=== PATIENT | female | born 1945 | race Caucasian/White ===

== ENCOUNTER 2020-01-26 05:20 | Emergency (ER) | payer MEDICARE, BC ==
[2020-01-26] MEDS ORDERED: Sodium Chloride 0.9% 10 ML Syringe FLUSH PRN (05:52)
[2020-01-26] MEDS ORDERED: Sodium Chloride 0.9% 1,000 ML IV ONE (05:58)
[2020-01-26] MEDS ORDERED: Acetaminophen 325 MG Tab PO PRN (06:00)
[2020-01-26] MEDS ORDERED: Ondansetron 4 MG/2 ML SDV IVPUSH ONE (06:16)
[2020-01-26 06:21] LABS: CHLORIDE,CL 100 mmol/L (98-107); SODIUM,NA 134 mmol/L (136-145)
--- NOTE | 2020-01-26 06:30 | EDM.PDOC ---
ED HPI GENERAL MEDICAL PROBLEM - General Chief Complaint: General Stated Complaint: Fever, cough aches and pains Time Seen by Provider: 01/26/20 05:40 Source of Information: Reports: Patient History Limitations: Reports: No Limitations - History of Present Illness INITIAL COMMENTS - FREE TEXT/NARRATIVE: Patient comes to ER by EMS due to Covid symptoms. + test Jan 10/had symptoms start a few days before. Generalized body aches/cough/loose stools/nausea/light headed/nasal congestion. Has chronic back pain which has worsened with the Covid. No vomiting. No SOB at this time. Unable to sleep. Weaker. Has had fevers/no specific measurement/has been taking Tylenol. Back Pain Score (Numeric/FACES): 5 - Related Data Allergies Allergy/AdvReac Type Severity Reaction Status Date / Time Sulfa (Sulfonamide Allergy Rash Verified 01/26/20 05:23 Antibiotics) Home Meds: Home Meds Acebutolol HCl [Acebutolol] 200 mg PO DAILY 01/26/20 [History] Acetaminophen [Tylenol Extra Strength] 1,000 mg PO Q4HR PRN 01/26/20 [History] Calcium Citrate/Vitamin D3 [Citracal-Vit D 250 MG-200] 1 tab PO DAILY 01/26/20 [History] Cyanocobalamin/Folic AC/Vit B6 [F[place]] 1 each PO DAILY 01/26/20 [History] Escitalopram [Lexapro] 20 mg PO DAILY 01/26/20 [History] [place]-3/DHA/Epa/Fish Oil [[place]-3 Fish Oil Softgel] 1 each PO DAILY 01/26/20 [History] Propafenone [Rythmol] 225 mg PO Q8HR 01/26/20 [History] Past Medical History Cardiovascular History: Reports: Hypertension Gastrointestinal History: Reports: Colon Polyp Musculoskeletal History: Reports: Back Pain, Chronic - Past Surgical History GI Surgical History: Reports: Colonoscopy Female Surgical History: Reports: Hysterectomy, Tubal Ligation Social & Family History - Tobacco Use Tobacco Use Status *Q: Never Tobacco User Second Hand Smoke Exposure: No - Caffeine Use Caffeine Use: Reports: Soda - Recreational Drug Use Recreational Drug Use: No ED ROS GENERAL - Review of Systems Review Of Systems: Comprehensive ROS is negative, except as noted in HPI. ED EXAM, GENERAL - Physical Exam Exam: See Below Exam Limited By: No Limitations General Appearance: Alert, WD/WN, No Apparent Distress Eye Exam: Bilateral Eye: EOMI, PERRL Ears: Hearing Grossly Normal Nose: No: Nasal Deformity, Nasal Swelling, Nasal Drainage Throat/Mouth: Normal Lips, Normal Voice, No Airway Compromise Head: Atraumatic, Normocephalic Neck: Supple Respiratory/Chest: No Respiratory Distress, Lungs Clear, Normal Breath Sounds, No Accessory Muscle Use Cardiovascular: Regular Rate, Rhythm, No Edema, No Murmur GI/Abdominal: Normal Bowel Sounds, Soft, Non-Tender, No Distention (Female) Exam: Deferred Rectal (Female) Exam: Deferred Back Exam: No: CVA Tenderness (L), CVA Tenderness (R), Muscle Spasm Extremities: No Pedal Edema, Slow Capillary Refill Psychiatric: Normal Affect, Normal Mood Skin Exam: Warm, Dry, Intact, Normal Color #1 Interpretation EKG Date: 01/26/20 Time: 06:17 Rhythm: Other (1st degree block) Rate (Beats/Min): 73 [place]: Normal P-Wave: Present QRS: Normal ST-T: Normal QT: Normal Comparison: NA - No Prior EKG Course - Vital Signs Last Recorded V/S: Last Vital Signs Temp 36.8 C 01/26/20 08:28 Pulse 68 01/26/20 08:28 Resp 18 01/26/20 08:28 BP 144/54 H 01/26/20 08:28 Pulse Ox 96 01/26/20 08:28 - Orders/Labs/Meds Orders: Active Orders 24 hr Category Date Time Status EKG Documentation Completion [RC] ASDIRECTED Care 01/26/20 05:53 Active Chest 1V Frontal [CR] Stat Exams 01/26/20 05:53 Ordered UA W/MICROSCOPIC [URIN] Routine Lab 01/26/20 06:17 Ordered Acetaminophen [TylenoL] Med 01/26/20 06:00 Active 650 mg PO Q4H PRN Sodium Chloride 0.9% [Saline Flush] Med 01/26/20 05:52 Active 10 ml FLUSH ASDIRECTED PRN Saline Lock Insert [OM.PC] Routine Oth 01/26/20 05:52 Ordered Medication Orders Acetaminophen (Tylenol) 650 mg PO Q4H PRN PRN Reason: Fever Last Admin: 01/26/20 06:04 Dose: 650 mg Documented by: OPAL Sodium Chloride (Saline Flush) 10 ml FLUSH ASDIRECTED PRN PRN Reason: Keep Vein Open Labs: Laboratory Tests 01/26/20 01/26/20 01/26/20 Range/Units 05:57 05:57 05:57 WBC 5.5 (4.0-10.2) K/uL RBC 3.90 (3.77-5.09) M/uL Hgb 12.0 (11.7-15.5) g/dL Hct 36.1 (34.0-46.0) % MCV 92.6 (84.0-98.0) fL MCH 30.8 (28.2-33.3) pg MCHC 33.2 (31.7-36.0) g/dL RDW 12.5 (11.2-14.1) % Plt Count 152 (150-350) K/uL Neut % (Auto) 59.8 (45.0-80.0) % Lymph % (Auto) 30.2 (10.0-50.0) % [place] % (Auto) 9.6 (2.0-14.0) % Eos % (Auto) 0.2 (0.0-5.0) % Baso % (Auto) 0.2 (0.0-2.0) % Neut # (Auto) 3.29 (1.40-7.00) K/uL Lymph # (Auto) 1.66 (0.50-3.50) K/uL [place] # (Auto) 0.53 (0.00-1.00) K/uL Eos # (Auto) 0.01 (0.00-0.50) K/uL Baso # (Auto) 0.01 (0.00-0.20) K/uL D-Dimer, Quantitative 363 (0-400) ng/mL Sodium 134 L (136-145) mmol/L Potassium 4.1 (3.5-5.1) mmol/L Chloride 100 (98-107) mmol/L Carbon Dioxide 24.0 (21.0-32.0) mmol/L BUN 13 (7-18) mg/dL Creatinine 0.77 (0.51-1.17) mg/dL Est Cr Clr Drug Dosing 57.68 mL/min Estimated GFR (MDRD) > 60 mL/min Glucose 134 H (74-106) mg/dL Lactic Acid (0.4-2.0) mmol/L Calcium 8.0 L (8.5-10.1) mg/dL Total Bilirubin 0.4 (0.2-1.0) mg/dL AST 23 (15-37) U/L ALT 32 (12-78) U/L Alkaline Phosphatase 52 (46-116) IU/L Total Protein 6.7 (6.4-8.2) g/dL Albumin 3.1 L (3.4-5.0) g/dL 01/26/20 Range/Units 05:57 WBC (4.0-10.2) K/uL RBC (3.77-5.09) M/uL Hgb (11.7-15.5) g/dL Hct (34.0-46.0) % MCV (84.0-98.0) fL MCH (28.2-33.3) pg MCHC (31.7-36.0) g/dL RDW (11.2-14.1) % Plt Count (150-350) K/uL Neut % (Auto) (45.0-80.0) % Lymph % (Auto) (10.0-50.0) % [place] % (Auto) (2.0-14.0) % Eos % (Auto) (0.0-5.0) % Baso % (Auto) (0.0-2.0) % Neut # (Auto) (1.40-7.00) K/uL Lymph # (Auto) (0.50-3.50) K/uL [place] # (Auto) (0.00-1.00) K/uL Eos # (Auto) (0.00-0.50) K/uL Baso # (Auto) (0.00-0.20) K/uL D-Dimer, Quantitative (0-400) ng/mL Sodium (136-145) mmol/L Potassium (3.5-5.1) mmol/L Chloride (98-107) mmol/L Carbon Dioxide (21.0-32.0) mmol/L BUN (7-18) mg/dL Creatinine (0.51-1.17) mg/dL Est Cr Clr Drug Dosing mL/min Estimated GFR (MDRD) mL/min Glucose (74-106) mg/dL Lactic Acid 1.2 (0.4-2.0) mmol/L Calcium (8.5-10.1) mg/dL Total Bilirubin (0.2-1.0) mg/dL AST (15-37) U/L ALT (12-78) U/L Alkaline Phosphatase (46-116) IU/L Total Protein (6.4-8.2) g/dL Albumin (3.4-5.0) g/dL Meds: Medications Generic Name Dose Route Start Last Admin Trade Name Freq PRN Reason Stop Dose Admin Acetaminophen 650 mg 01/26/20 06:00 01/26/20 06:04 Tylenol PO 650 mg Q4H PRN Administration Fever Sodium Chloride 10 ml 01/26/20 05:52 Saline Flush FLUSH ASDIRECTED PRN Keep Vein Open Discontinued Medications Generic Name Dose Route Start Last Admin Trade Name Freq PRN Reason Stop Dose Admin Sodium Chloride 1,000 mls @ 500 mls/hr 01/26/20 05:58 01/26/20 06:02 Normal Saline IV 01/26/20 07:57 500 mls/hr .BOLUS ONE Administration Ondansetron HCl 4 mg 01/26/20 06:16 Zofran IVPUSH 01/26/20 06:17 ONETIME ONE - Radiology Interpretation Free Text/Narrative:: Chest xray: overall unremarkable. No evidence of fluid overload/focal pneumonia. - Re-Assessments/Exams Free Text/Narrative Re-Assessment/Exam: 01/26/20 06:30 Cbc/Chem/DDimer overall unremarkable. Vital signs stable. Plan at this time is to given one liter of fluid/Zofran. Patient will be discharged home with take home bottle of Tramadol and Zofran for prn use. Patient unable to take NSAIDS due to her heart rhythm history. She will continue to take Tylenol prn for fever/discomfort. To follow up otherwise as needed. 01/26/20 09:45 Patient discharged after one liter of IV fluid. She was unhappy at prospect of being discharged home and had anticipated being admitted to the hospital for further care. Probable course of action with anticipated discharge home was reviewed with her when fluids ordered. It was explained to her that her xray, vital signs, and labs all looked very good and that there was no reason for hospital admission. This did not change her desire to stay so it was then reviewed that Medicare would not cover her stay based on what we are seeing today but she could go private pay if she really felt that she wanted to avoid returning home. Patient then wanted to know why she felt so bad and normal course of flu/usual symptoms were reviewed with her along with there being no real treatment available to make the flu symptoms go away. Nurse had to review this again at the end of the ER stay as patient continued to be unhappy prior to discharge. She is to continue quarantine and follow up as needed for ongoing concerns/new symptoms. Departure - Departure Time of Disposition: 08:30 Disposition: Home, Self-Care 01 Condition: Good Clinical Impression: COVID-19, Dehydration - Discharge Information *PRESCRIPTION DRUG MONITORING PROGRAM REVIEWED*: Not Applicable *COPY OF PRESCRIPTION DRUG MONITORING REPORT IN PATIENT TIARA: Not Applicable Instructions: COVID-19 Frequently Asked Questions, Ondansetron oral dissolving tablet, Tramadol tablets Forms: ED Department Discharge Additional Instructions: Home/rest/stay hydrated. Take Tramadol one tab every 6 hours as needed for pain. OK to take with Tylenol. Take Zofran 1/2 to 1 tab under tongue once every 6 hours as needed for nausea. Sepsis Event Note (ED) - Evaluation Sepsis Screening Result: Possible Sepsis Risk - Focused Exam Vital Signs: Vital Signs Temp Pulse Resp BP Pulse Ox 01/26/20 08:28 36.8 C 68 18 144/54 H 96 01/26/20 07:29 36.9 C 66 20 134/54 L 96 01/26/20 05:26 97 15 140/70 97 - My Orders Last 24 Hours: My Active Orders 01/26/20 05:52 Sodium Chloride 0.9% [Saline Flush] 10 ml FLUSH ASDIRECTED PRN Saline Lock Insert [OM.PC] Routine 01/26/20 05:53 EKG Documentation Completion [RC] ASDIRECTED Chest 1V Frontal [CR] Stat 01/26/20 06:00 Acetaminophen [TylenoL] 650 mg PO Q4H PRN 01/26/20 06:17 UA W/MICROSCOPIC [URIN] Routine - Assessment/Plan Last 24 Hours: My Active Orders 01/26/20 05:52 Sodium Chloride 0.9% [Saline Flush] 10 ml FLUSH ASDIRECTED PRN Saline Lock Insert [OM.PC] Routine 01/26/20 05:53 EKG Documentation Completion [RC] ASDIRECTED Chest 1V Frontal [CR] Stat 01/26/20 06:00 Acetaminophen [TylenoL] 650 mg PO Q4H PRN 01/26/20 06:17 UA W/MICROSCOPIC [URIN] Routine
== END 2020-01-26 09:15 | disposition home or self-care (01) ==
LOC: LL.ED 05:20
DX: U07.1 COVID-19 (principal); E86.0 Dehydration; I10 Essential (primary) hypertension; Z79.899 Other long term (current) drug therapy; Z88.2 Allergy status to sulfonamides
CPT/HCPCS: 36415; 71045; 80053; 83605; 85025; 85379; 93005; 99284; A9270; J7030; 93010; 99283

== ENCOUNTER 2021-04-01 18:48 | Observation (INO) | payer MEDICARE, BC ==
[2021-04-01 20:19] LABS: ANION GAP 11.3 meq/L (7-15); CHLORIDE,CL 96 mmol/L (98-107); SODIUM,NA 129 mmol/L (136-145)
[2021-04-01 20:39] LABS: CORONAVIRUS COVID-19 NAA NEGATIVE (NEGATIVE); RESPIRATORY SYNCYTIAL VIR NAA NEGATIVE (NEGATIVE)
[2021-04-01] MEDS ORDERED: Ondansetron 4 MG/2 ML SDV IVPUSH PRN (23:29)
[2021-04-01] MEDS ORDERED: Polyethylene Glycol 3350 Powder 17 GM Packet PO PRN (23:29)
[2021-04-01] MEDS ORDERED: Acetaminophen 325 MG Tab PO PRN (23:29)
[2021-04-01] MEDS ORDERED: Lactated Ringers 1,000 ML IV SCH (23:30)
[2021-04-02] MEDS ORDERED: Lidocaine/Prilocaine 2.5-2.5% Crm 5 GM Tube ONE (00:01)
[2021-04-02] MEDS: Enoxaparin 40 MG/0.4 ML Syringe SUBCUT SCH ×2 (00:13→09:50)
[2021-04-02] MEDS ORDERED: Aspirin 81 MG Tab.Chew PO ONE (00:19)
[2021-04-02] MEDS: Non-Formulary Medication 1 Each (Escitalopram [Lexapro] 20 MG Tablet) PO SCH ×2 (02:33→10:04)
[2021-04-02 06:20] LABS: ANION GAP 11.4 meq/L (7-15); CHLORIDE,CL 96 mmol/L (98-107); SODIUM,NA 129 mmol/L (136-145)
[2021-04-02] MEDS ORDERED: Escitalopram 20 MG Tab PO SCH (08:00)
[2021-04-02 08:12] LABS: HEMOGLOBIN A1C 6.5 % (4.3-5.7)
[2021-04-02] MEDS ORDERED: Nitroglycerin 2% Oint 1 GM UD Packet TOP SCH (10:00)
[2021-04-02] MEDS ORDERED: metFORMIN 500 MG Tab PO SCH (17:30)
[2021-04-02] MEDS ORDERED: Enoxaparin 60 MG/0.6 ML Syringe SUBCUT SCH (20:00)
== END 2021-04-02 13:31 ==
LOC: LL.ED 18:48 → LL.MS 22:55
PROVIDERS: ADMIT Hospitalist; ATTEND Hospitalist
DX: I21.4 Non-ST elevation (NSTEMI) myocardial infarction (principal); G43.709 Chronic migraine without aura, not intractable, without status migrainosus; E87.1 Hypo-osmolality and hyponatremia; R73.9 Hyperglycemia, unspecified; E55.9 Vitamin D deficiency, unspecified; K21.9 Gastro-esophageal reflux disease without esophagitis; I10 Essential (primary) hypertension; F41.9 Anxiety disorder, unspecified; F32.A Depression, unspecified; Z88.2 Allergy status to sulfonamides; Z79.899 Other long term (current) drug therapy; Z98.890 Other specified postprocedural states; Z20.822 Contact with and (suspected) exposure to COVID-19
CPT/HCPCS: 0241U; 36415; 76705; 80048; 80053; 80061; 83036; 83735; 84484; 85025; 85027; 86140; 93005; 99285-25; A9270-GY; J1650; J7120